=== PATIENT | female | born 1955 | race Caucasian/White ===

== ENCOUNTER 2019-02-05 10:45 | Inpatient (IN) | payer MEDICARE, OTHER | END 2019-02-08 14:00 | disposition home or self-care (01) | LOC: ORTHO 4S 02-06 02:27 → PAS IN 10:45 → ORTHO 4S 15:30 | PROC: 0SRD0J9 Replacement of Left Knee Joint with Synthetic Substitute, Cemented, Open Approach (ICD-10-PCS; principal; 2019-02-05 12:32) | DX: M17.12 Unilateral primary osteoarthritis, left knee (principal) ==